=== PATIENT | male | born 1950 | race Caucasian/White ===

== ENCOUNTER 2023-10-27 07:58 | Inpatient (IN) | payer MEDICARE ==
[2023-10-27] VITALS (22 sets, daily range): BP systolic 119–183; BP diastolic 63–101
[~2023-10-27] VITALS: Ht 170 cm; Wt 73.7 kg
[~2023-10-27 07:58] MED LIST: ACHYD1T PO; ALBU8.5H2 IH; ASP325T PO; GEMF600T3 PO; GLIM4TAB PO; GLMP2T PO; HYDR-3816 PO; HYDR480S10 PO; INSU100V5 SQ; INSU100V6 SQ; LEVO500T69 PO; LISI10TA2 PO; LISI20TA PO; MONT10TA21 PO; MTF500T PO; PNT40TEC PO; PRAV40TA PO; PRAV80TA2 PO; SIMV20TA3 PO; WARF1TAB6 PO; WARF5TAB PO
--- NOTE | 2023-10-27 08:08 | ED Respiratory ---
General Chief Complaint: Respiratory Problems Stated Complaint: SOA Nursing Triage Note: PT ARRIVED PER [facility]PT [facility] OF SOA, STATES STARTED THIS AM. PT STATES HAVING DIFFICULTY BENDING OVER TO TIE HIS SHOES. PT DENIES PAIN AT THIS X. Source: patient, EMS Exam Limitations: no limitations History of Present Illness Date Seen by Provider: Oct 27, 2023 Time Seen by Provider: 07:56 Initial Comments 73 yo M with CAD presents for SOB that started last night. Worsened this AM. States worried bc feels similar to previous [place] which required stent placement. Denies fever, chills. Has chronic "smokers cough" which is unchanged. No sick contacts. No CP. Does state worsening b./l LE edema last 2-3 days. He is on an unknown diuretic. All other systems reviewed and negative except documented per HPI. Voice recognition software was used to help create this chart Allergies and Home Medications Allergies Coded Allergies: No Known Drug Allergies (Unverified , 04/21/14) Patient Home Medication List Home Medication List Reviewed: Yes Gemfibrozil (Gemfibrozil) 600 Mg Tablet, 600 MG PO BID, (Reported) Entered as Reported by: DEREK VELÁSQUEZ on 12/05/142029 Glimepiride (Glimepiride) 4 Mg Tablet, 4 MG PO DAILY, (Reported) Entered as Reported by: FAIZA ALAMO on 12/06/14947 Hydrocodone Bit/Acetaminophen (Hydrocodone-Apap 7.5/325 Tab) 1 Tab Tablet, 1 TAB PO Q6H PRN for PAIN, (Reported) Entered as Reported by: FAIZA ALAMO on 12/06/1451 Insulin Detemir (Levemir) 100 U/Ml Vial, 15 UNITS SQ DAILY, (Reported) Entered as Reported by: DEREK VELÁSQUEZ on 12/05/142030 Lisinopril (Prinivil) 20 Mg Tablet, 20 MG PO DAILY, (Reported) Entered as Reported by: FAIZA ALAMO on 12/06/14947 Metformin Hcl (Metformin 500 Mg) 500 Mg Tablet, 500 MG PO BID WITH MEALS, (Reported) Entered as Reported by: HOLLY BAIG on 04/21/142238 Pantoprazole Sod (Protonix Tab) 40 Mg Tab, 40 MG PO DAILY@0700 Prescribed by: FELY BRADFORD on 12/08/14 0935 Pravastatin Sodium (Pravachol) 40 Mg Tablet, 40 MG PO HS, (Reported) Entered as Reported by: FAIZA ALAMO on 12/06/14 0948 Review of Systems Review of Systems Constitutional: see HPI Past Ktulkbm-Rfaaao-Bwyqrs Hx Patient Social History Tobacco Use?: Yes Use of E-Cig and/or Vaping dev: No Substance use?: No Alcohol Use?: No Seasonal Allergies Seasonal Allergies: No Past Medical History Gallbladder Pneumonia, Pulmonary Embolism High Cholesterol, Hypertension Reproductive Disorders: No Gastroesophageal Reflux Diabetes, Insulin dep Skin Physical Exam Vital Signs - First Documented 10/27/23 08:00 Temp 36.4 Pulse 63 Resp 13 B/P (MAP) 162/97 (118) Pulse Ox 93 O2 Delivery Room Air Capillary Refill : Height: 5'8.00" Weight: 191lbs. 8.0oz. 86.165459lv; BMI Method:Stated General Appearance: WD/WN, mild distress HEENT: normal ENT inspection, pharynx normal Neck: non-tender, supple Respiratory: chest non-tender, no respiratory distress, no accessory muscle use, crackles Cardiovascular: regular rate, rhythm, no murmur Gastrointestinal: normal bowel sounds, non tender, soft Skin: other (2+ edema b/l LE) Progress/Results/Core Measures Suspected Sepsis SIRS Temperature: Pulse: 63 Respiratory Rate: 13 Laboratory Tests 10/27/23 08:07: White Blood Count 8.6 Blood Pressure 162 /97 Mean: 118 Laboratory Tests 10/27/23 08:07: Creatinine 1.56H, Platelet Count 229, Total Bilirubin 0.5 Results/Orders Lab Results Laboratory Tests Test 10/27/23 08:07 10/27/23 08:09 Range/Units White Blood Count 8.6 4.3-11.0 10^3/uL Red Blood Count 4.27 L 4.30-5.52 10^6/uL Hemoglobin 12.8 L 13.3-17.7 g/dL Hematocrit 40 40-54 % Mean Corpuscular Volume 93 80-99 fL Mean Corpuscular Hemoglobin 30 25-34 pg Mean Corpuscular Hemoglobin Concent 32 32-36 g/dL Red Cell Distribution Width 13.1 10.0-14.5 % Platelet Count 229 130-400 10^3/uL Mean Platelet Volume 10.7 9.0-12.2 fL Immature Granulocyte % (Auto) 0 % Neutrophils (%) (Auto) 58 42-75 % Lymphocytes (%) (Auto) 23 12-44 % Monocytes (%) (Auto) 9 0-12 % Eosinophils (%) (Auto) 9 0-10 % Basophils (%) (Auto) 1 0-10 % Neutrophils # (Auto) 4.9 1.8-7.8 10^3/uL Lymphocytes # (Auto) 2.0 1.0-4.0 10^3/uL Monocytes # (Auto) 0.8 0.0-1.0 10^3/uL Eosinophils # (Auto) 0.7 H 0.0-0.3 10^3/uL Basophils # (Auto) 0.1 0.0-0.1 10^3/uL Immature Granulocyte # (Auto) 0.0 0.0-0.1 10^3/uL Sodium Level 142 135-145 MMOL/L Potassium Level 3.6 3.6-5.0 MMOL/L Chloride Level 103 98-107 MMOL/L Carbon Dioxide Level 27 21-32 MMOL/L Anion Gap 12 5-14 MMOL/L Blood Urea Nitrogen 16 7-18 MG/DL Creatinine 1.56 H 0.60-1.30 MG/DL Estimat Glomerular Filtration Rate 46 BUN/Creatinine Ratio 10 Glucose Level 234 H 70-105 MG/DL Calcium Level 8.5 8.5-10.1 MG/DL Corrected Calcium 8.7 8.5-10.1 MG/DL Total Bilirubin 0.5 0.1-1.0 MG/DL Aspartate Amino Transf (AST/SGOT) 21 5-34 U/L Alanine Aminotransferase (ALT/SGPT) 14 0-55 U/L Alkaline Phosphatase 119 40-136 U/L Troponin I < 0.028 <0.028 NG/ML B-Type Natriuretic Peptide 1309.3 H <100.0 PG/ML Total Protein 7.2 6.4-8.2 GM/DL Albumin 3.8 3.2-4.5 GM/DL Glucometer 214 H 70-110 MG/DL My Orders Orders - CECILRAFI DO Comprehensive Metabolic Panel (10/27/23 08:04) Chest 1 View, Ap/Pa Only (10/27/23 08:04) Ekg Tracing (10/27/23 08:04) Troponin I Coke (10/27/23 08:04) Cbc And Automated Diff (10/27/23 08:04) Aspirin Chewable Tablet (Aspirin Chewabl (10/27/23 08:30) Bnp Coke (10/27/23 08:30) Ed Iv/Invasive Line Start (10/27/23 08:30) Furosemide Injection (Furosemide Injec (10/27/23 08:30) Azithromycin Injection (Azithromycin Inj (10/27/23 09:15) Ceftriaxone Iv/Im (Ceftriaxone Iv/Im) (10/27/23 09:15) Ed Admission (Communication) (10/27/23 09:39) Medications Given in ED Current Medications Medications Dose Ordered Sig/Destiney Route Start Time Stop Time Status Last Admin Dose Admin Aspirin 324 mg ONCE ONCE PO 10/27/23 08:30 10/27/23 08:31 DC 10/27/23 09:10 324 MG Azithromycin 500 mg/Sodium Chloride 250 ml @ 250 mls/hr ONCE ONCE IV 10/27/23 09:15 10/27/23 10:14 10/27/23 09:28 250 MLS/HR Ceftriaxone Sodium 1000 mg/ Sodium Chloride 50 ml @ 100 mls/hr ONCE ONCE IV 10/27/23 09:15 10/27/23 09:44 DC 10/27/23 09:26 100 MLS/HR Furosemide 40 mg ONCE ONCE IVP 10/27/23 08:30 10/27/23 08:31 DC 10/27/23 09:10 40 MG Vital Signs/I&O 10/27/23 08:00 Temp 36.4 Pulse 63 Resp 13 B/P (MAP) 162/97 (118) Pulse Ox 93 O2 Delivery Room Air Capillary Refill : Blood Pressure Mean: 118 ECG Comment Sinus rhythm with a rate of 64 bpm. Normal intervals. Left axis deviation. No ST or T wave abnormalities. Isolated PVC. No STEMI Critical Care Note Critical Care Total Time (minutes) 45 Departure Communication (Admissions) Patient is hemodynamically stable outside of some mild hypoxia treated with 2 L of oxygen via nasal cannula and improved. He states he is feeling much better. Heart rate and blood pressure are stable. He is having no chest pain but symptoms are similar to previous episodes with [place]. His chest x-ray on my independent evaluation shows likely pulmonary edema, though the radiologist does read possible infiltrates as well. Without I went ahead and give him a dose of Zithromax and Rocephin however again I believe this is likely edema. I have ordered IV Lasix, 40 mg. He does take a diuretic at home, unknown what type. His troponin is negative his EKG is nonischemic at this time. The remainder of his chemistry, CBC are unremarkable. I spoke with Dr. Rajput who accepts the patient admission to the cardiac stepdown unit and she plans to write bridging orders. I spoke with Dr. Diaz who agrees to consult. He requests me to order an echocardiogram. I have had the nurse place a verbal order for him for this. Impression Primary Impression: Dyspnea Qualified Codes: R06.00 - Dyspnea, unspecified Additional Impression: Pulmonary edema Qualified Codes: J81.0 - Acute pulmonary edema Disposition: ADMITTED INPATIENT Condition: Stable Admissions Decision to Admit Reason: Admit from ER (General) Departure-Patient Inst. Referrals: LOPEZ CORDOVA APRN (PCP/Family) Primary Care Physician RAFI JACOB DO Oct 27, 2023 08:08
[2023-10-27 08:14] LABS: BASOPHILS # (AUTO) 0.1 10^3/uL (0.0-0.1); BASOPHILS % (AUTO) 1 % (0-10); EOSINOPHILS # (AUTO) 0.7 10^3/uL (0.0-0.3); EOSINOPHILS % (AUTO) 9 % (0-10); HEMATOCRIT 40 % (40-54); HEMOGLOBIN 12.8 g/dL (13.3-17.7); LYMPHOCYTES % (AUTO) 23 % (12-44); MEAN CORPUSCULAR HEMOGLOBIN 30 pg (25-34); MEAN CORPUSCULAR HGB CONC 32 g/dL (32-36); MEAN CORPUSCULAR VOLUME 93 fL (80-99); MEAN PLATELET VOLUME 10.7 fL (9.0-12.2); MONOCYTES # (AUTO) 0.8 10^3/uL (0.0-1.0); MONOCYTES % (AUTO) 9 % (0-12); NEUTROPHILS # (AUTO) 4.9 10^3/uL (1.8-7.8); NEUTROPHILS % (AUTO) 58 % (42-75); PLATELET COUNT 229 10^3/uL (130-400); WHITE BLOOD COUNT 8.6 10^3/uL (4.3-11.0)
[2023-10-27] MEDS ORDERED: FUROSEMIDE INJECTION 40 MG/4 ML VIAL IVP ONE (08:30)
[2023-10-27] MEDS ORDERED: ASPIRIN 81 MG CHEWABLE TABLET PO ONE (08:30)
[2023-10-27 08:31] LABS: ALBUMIN 3.8 GM/DL (3.2-4.5); CHLORIDE 103 MMOL/L (98-107); POTASSIUM 3.6 MMOL/L (3.6-5.0); SODIUM 142 MMOL/L (135-145)
[2023-10-27 08:32] LABS: CALCIUM 8.5 MG/DL (8.5-10.1)
[2023-10-27 08:33] LABS: GLUCOSE 234 MG/DL (70-105)
[2023-10-27 08:34] LABS: TOTAL PROTEIN 7.2 GM/DL (6.4-8.2)
[2023-10-27 08:35] LABS: CARBON DIOXIDE 27 MMOL/L (21-32)
[2023-10-27 08:36] LABS: BILIRUBIN,TOTAL 0.5 MG/DL (0.1-1.0)
[2023-10-27 08:37] LABS: ALKALINE PHOSPHATASE 119 U/L (40-136); CREATININE SERUM 1.56 MG/DL (0.60-1.30); GFR ESTIMATED 46
[2023-10-27 08:38] LABS: BUN/CREATININE RATIO 10
[2023-10-27 08:40] LABS: ALANINE AMINOTRANSFERASE 14 U/L (0-55)
--- NOTE | 2023-10-27 08:41 | Diagnostic Imaging Report ---
CLINICAL INDICATION: Patient with shortness of air. EXAM: Portable chest x-ray upright view. COMPARISON: None. FINDINGS: There are mild amorphous airspace opacities involving the right midlung field and both lung bases. There is fluid within the right minor fissure region. There is a small right pleural effusion. There is no pneumothorax. Cardiac silhouette is upper limits of normal for portable projection. Pulmonary vasculature is within normal limits. There are degenerative spurs involving the thoracic spine. IMPRESSION: 1: There is mild airspace opacities involving the right midlung field and bibasilar regions concerning for infiltrates. 2: There is a small right pleural effusion. Dictated by: Dictated on workstation # [id number]
[2023-10-27] MEDS ORDERED: AZITHROMYCIN INJECTION 500 MG in NS (IVPB) 250 ML 250 ML IV ONE ×2 (09:15→12:00)
[2023-10-27] MEDS ORDERED: cefTRIAXone IV/IM 1,000 MG in NS (IVPB) 50 ML 50 ML IV ONE (09:15)
--- NOTE | 2023-10-27 09:47 | History & Physical-Hospitalist ---
History of Present Illness Date Seen 10/27/23 Attending Physician Medina Andrade Aprn PCP Admitting Physician: Attending Physician: Referring Physician Date of Admission Home Medications & Allergies Home Medications Reviewed patient Home Medication Reconciliation performed by pharmacy medication reconciliations auto repair technician and/or nursing. Patients Allergies have been reviewed. Allergies Allergies Coded Allergies No Known Drug Allergies (Unverified04/21/14) Past Qhzwlbw-Lfpfux-Cfemsh Hx Patient Social History Tobacco Use?: Yes Tobacco type used: Cigarettes Smoking Status: Current Everyday Smoker Use of E-Cig and/or Vaping dev: No Substance use?: No Alcohol Use?: No Pt feels they are or have been: No Immunizations Up To Date Date of Influenza Vaccine: Oct 11, 2014 First/Initial COVID19 Vaccinat: YES Second COVID19 Vaccination Carlos: YES Date of Pneumonia Vaccine: Oct 11, 2014 Seasonal Allergies Seasonal Allergies: No Current Status Advance Directives: No Communicates: Verbally Primary Language: Indian Preferred Spoken Language: Indian Is interpretation needed?: No Implanted or Applied Medical D: None Past Medical History Surgeries: Gallbladder Pneumonia, Pulmonary Embolism High Cholesterol, Hypertension Gastroesophageal Reflux Diabetes, Insulin dep Skin Physical Exam Physical Exam Vital Signs Vital Signs - First Documented 10/27/23 10/27/23 10/27/23 08:00 11:15 13:00 Temp 36.4 Pulse 63 Resp 13 B/P (MAP) 162/97 (118) Pulse Ox 93 O2 Delivery Room Air O2 Flow Rate 2.00 FiO2 24 Capillary Refill : Height, Weight, BMI Height: 5'8.00" Weight: 191lbs. 8.0oz. 86.526609pd; BMI Method:Stated Results Results/Procedures Labs Laboratory Tests 10/27/23 08:07 Patient resulted labs reviewed. SAMINA SMITH DO Oct 27, 2023 09:47
--- NOTE | 2023-10-27 10:02 | Consultation-Cardiology ---
HPI-Cardiology Cardiology Consultation Date of Consultation 10/27/23 Date of Admission Time Seen by Provider: 09:56 Indication: Dyspnea, elevated BNP HPI Patient is a 73 y/o male with hx of CAD with stenting in the past, PVD, HTN, HLP, DM and tobaccoism. Presented to the ER with complaints of increased dyspnea and peripheral edema for the past several days. Denies any chest pain. Patient reports he was concerned as he did not have any chest pain last time he had an DE. Denies any dizziness or syncope. Home Medications & Allergies Allergies: Coded Allergies: No Known Drug Allergies (Unverified , 04/21/14) Home Medication List Reviewed: Yes SQT-Udjduq-Xrsaiq Hx Patient Social History Smoking Status: Current Everyday Smoker Alcohol Use?: No Immunizations Up To Date Date of Pneumonia Vaccine: Oct 11, 2014 Date of Influenza Vaccine: Oct 11, 2014 Past Medical History CAD, HTN, HLP, DM, PVD, tobaccoism, Review of Systems-General Review of Systems Constitutional: see HPI, malaise EENTM: see HPI, no symptoms reported; No blurred vision, No double vision, No eye pain Respiratory: see HPI, dyspnea on exertion, orthopnea, short of breath Cardiovascular: see HPI; No chest pain; edema, Hx of Intervention; No syncope Gastrointestinal: see HPI; No abdominal pain Genitourinary: see HPI; No dysuria, No hematuria Reviewed Test Results Reviewed Test Results Lab Laboratory Tests 10/27/23 08:07: White Blood Count 8.6, Red Blood Count 4.27L, Hemoglobin 12.8L, Hematocrit 40, Mean Corpuscular Volume 93, Mean Corpuscular Hemoglobin 30, Mean Corpuscular Hemoglobin Concent 32, Red Cell Distribution Width 13.1, Platelet Count 229, Mean Platelet Volume 10.7, Immature Granulocyte % (Auto) 0, Neutrophils (%) (Auto) 58, Lymphocytes (%) (Auto) 23, Monocytes (%) (Auto) 9, Eosinophils (%) (Auto) 9, Basophils (%) (Auto) 1, Neutrophils # (Auto) 4.9, Lymphocytes # (Auto) 2.0, Monocytes # (Auto) 0.8, Eosinophils # (Auto) 0.7H, Basophils # (Auto) 0.1, Immature Granulocyte # (Auto) 0.0, Sodium Level 142, Potassium Level 3.6, Chloride Level 103, Carbon Dioxide Level 27, Anion Gap 12, Blood Urea Nitrogen 16, Creatinine 1.56H, Estimat Glomerular Filtration Rate 46, BUN/Creatinine Ratio 10, Glucose Level 234H, Calcium Level 8.5, Corrected Calcium 8.7, Total Bilirubin 0.5, Aspartate Amino Transf (AST/SGOT) 21, Alanine Aminotransferase (ALT/SGPT) 14, Alkaline Phosphatase 119, Troponin I < 0.028, B-Type Natriuretic Peptide 1309.3H, Total Protein 7.2, Albumin 3.8 10/27/23 08:09: Glucometer 214H Physical Exam Physical Exam Vital Signs Vital Signs - First Documented 10/27/23 10/27/23 08:00 11:15 Temp 36.4 Pulse 63 Resp 13 B/P (MAP) 162/97 (118) Pulse Ox 93 O2 Delivery Room Air O2 Flow Rate 2.00 Capillary Refill : Height, Weight, BMI Height: 5'8.00" Weight: 191lbs. 8.0oz. 86.230696ss; BMI Method:Stated General Appearance: Anxious, Mild Distress HEENT: PERRL/EOMI, Other (lesion to right side face) Respiratory: Rhonci, Wheezing Cardiovascular: Regular Rate, Rhythm Gastrointestinal: Non Tender, Soft Extremity: Non Tender, No Calf Tenderness, Pedal Edema Neurologic/Psychiatric: Alert, Oriented x3, sign carpenter II-XII Norm as Tested A/P-Cardiology Admission Diagnosis Dyspnea Elevated BNP CAD HTN Assessment/Plan Dyspnea, likely multifactorial, elevated BNP, CXR showing right sided infiltrate. Started on antibiotics, received IV Lasix. 2D echo done on October 27, 2023 with ejection fraction 30 to 35% with anterior wall akinesia, severe pulmonary hypertension Continue with diuretics in addition recommend adding steroids, empiric antibiotics. Congestive heart failure, acute left ventricular systolic dysfunction, probably ischemic with anterior wall akinesia, old anterior myocardial infarction. Will maximize medical therapy and evaluate tolerance and response CAD, reports history of intervention approx 2-3 years ago. Primary chart picker is Dr. Austin, but reports no recent visit or work up. Monitor cardiac enzymes, monitor on telemetry HTN, restart home blood pressure medication and continue to monitor HLP, I will evaluate lipid profile. PVD,reports history of stenting to the LLE DM, management per medical services COPD, acute exacerbation, recommend starting steroids Tobaccoism, educated on smoking cessation Thank you for allowing us to participate in the management of Mr. Bravo. This is Siena Mart PA-C, as a scribe for Dr. Diaz. Patient was seen and evaluated with Siena, I interviewed and examined the patient and discussed the management plan with Siena, I agree with the curr ent scribed note I made few modification using Italic font. SIENA MART PA-C Oct 27, 2023 10:02 JACEY DIAZ MD Oct 27, 2023 11:57
[2023-10-27] MEDS ORDERED: methylPREDNISolone INJ 125 MG VIAL IVP ONE (11:15)
[2023-10-27] MEDS ORDERED: RT-Ipratropium/Albuterol NEB 3 ML VIAL INH ONE (11:15)
[2023-10-27] MEDS ORDERED: ACETAMINOPHEN 325 MG TABLET PO PRN (12:00)
[2023-10-27] MEDS ORDERED: diphenhydrAMINE INJ 50 MG/ML VIAL IVP PRN (12:00)
[2023-10-27] MEDS ORDERED: LACTULOSE SYRUP 10GM/15ML 30ML UDC PO PRN (12:00)
[2023-10-27] MEDS ORDERED: MILK OF MAGNESIA 400 MG/5 ML 30 ML UDC PO PRN (12:00)
[2023-10-27] MEDS ORDERED: PATIENT MAY USE OWN MEDS, ALL PO SCH (12:00)
[2023-10-27] MEDS ORDERED: MELATONIN 3 MG TABLET PO PRN (12:00)
[2023-10-27] MEDS ORDERED: ONDANSETRON INJECTION 4 MG/2 ML (SDV) IV PRN (12:00)
[2023-10-27] MEDS ORDERED: NITROGLYCERIN 0.4 MG SL TABLETS BTL 25'S SL PRN (12:00)
[2023-10-27] MEDS ORDERED: ANTACID SUSPENSION 30 ML UDC PO PRN (12:00)
[2023-10-27] MEDS ORDERED: BISACODYL 10 MG SUPPOSITORY PR PRN (12:00)
[2023-10-27] MEDS ORDERED: CALCIUM CARBONATE 500 MG CHEW TABLET PO PRN (12:00)
[2023-10-27] MEDS ORDERED: HYDROmorphone INJECTION 2 MG/ML VIAL IV PRN (12:00)
[2023-10-27] MEDS ORDERED: oxyCODONE IMMEDIATE RELEASE 5 MG TABLET PO PRN (12:00)
[2023-10-27] MEDS ORDERED: diphenhydrAMINE 25 MG TABLET PO PRN (12:00)
[2023-10-27] MEDS ORDERED: ONDANSETRON 4 MG ORAL DISSOLVE TABLET PO PRN (12:00)
[2023-10-27] MEDS ORDERED: RT-Ipratropium/Albuterol NEB 3 ML VIAL ONE (13:12)
[2023-10-27] MEDS ORDERED: RT-ALBUTEROL SULF 2.5 MG/3 ML PRE-MIX VIAL INH PRN (13:15)
[2023-10-27] MEDS: ENOXAPARIN 40 MG/0.4 ML SYRINGE SC SCH (13:44)
[2023-10-27] MEDS: dexAMETHasone INJ 4 MG/ML SDV IV SCH ×2 (13:44→20:10)
--- NOTE | 2023-10-27 13:51 | History & Physical-Hospitalist ---
LEIDA MILLS 10/27/23 1351: History of Present Illness HPI/Chief Complaint Pt presented to the ED this morning due to SOB that started today. It started worsening and due to his history of having an OH, he decided to come in. Pt reported to me that he is SOB and that it is "hard to take a deep breath". He denies having any abdominal pain, confusion, WELCH, numbness or tingling. Pt's daughter was in the room. Source: patient Exam Limitations: no limitations Date Seen 10/27/23 Time Seen by a Provider: 10:15 Attending Physician PCP Admitting Physician: Shirley Smith DO Attending Physician: Shirley Smith DO Referring Physician Date of Admission Oct 27, 2023 at 11:28 Home Medications & Allergies Home Medications Reviewed patient Home Medication Reconciliation performed by pharmacy medication reconciliations hvac residential service technician and/or nursing. Patients Allergies have been reviewed. Allergies Allergies Coded Allergies No Known Drug Allergies (Unverified04/21/14) Past Agyfodw-Mcbryl-Qlsxmv Hx Patient Social History Tobacco Use?: Yes Tobacco type used: Cigarettes Smoking Status: Current Everyday Smoker Use of E-Cig and/or Vaping dev: No Substance use?: No Alcohol Use?: No Pt feels they are or have been: No Immunizations Up To Date Date of Influenza Vaccine: Oct 11, 2014 First/Initial COVID19 Vaccinat: YES Second COVID19 Vaccination Carlos: YES Date of Pneumonia Vaccine: Oct 11, 2014 Seasonal Allergies Seasonal Allergies: No Current Status Advance Directives: No Communicates: Verbally Primary Language: Macedonian Preferred Spoken Language: Macedonian Is interpretation needed?: No Implanted or Applied Medical D: None Past Medical History Surgeries: Gallbladder Pneumonia, Pulmonary Embolism High Cholesterol, Hypertension Gastroesophageal Reflux Diabetes, Insulin dep Skin Review of Systems Constitutional: No dizziness, No fever, No weakness EENTM: No ear pain, No blurred vision, No double vision, No eye pain Respiratory: cough (chronic), short of breath Cardiovascular: No chest pain, No palpitations Gastrointestinal: No abdominal pain Musculoskeletal: neck pain (rt sided. blames the positioning of the ER bed.) Psychiatric/Neurological: Denies Headache, Denies Numbness, Denies Tingling, Denies Weakness Physical Exam Physical Exam Vital Signs Vital Signs - First Documented 10/27/23 10/27/23 10/27/23 08:00 11:15 13:00 Temp 36.4 Pulse 63 Resp 13 B/P (MAP) 162/97 (118) Pulse Ox 93 O2 Delivery Room Air O2 Flow Rate 2.00 FiO2 24 Capillary Refill : Height, Weight, BMI Height: 5'8.00" Weight: 191lbs. 8.0oz. 86.714639ow; 24.22 BMI Method:Stated General Appearance: Mild Distress HEENT: PERRL/EOMI; No Photophobia, No Scleral Icterus (L), No Scleral Icterus (R) Neck: Normal Inspection, Tender Lateral (rt) Respiratory: Chest Non Tender, Accessory Muscle Use, Rhonci, Wheezing Cardiovascular: Regular Rate, Rhythm, No Murmur Gastrointestinal: Normal Bowel Sounds, Non Tender, Soft; No Distended, No Guarding, No Rebound Extremity: Normal Capillary Refill, No Calf Tenderness Neurologic/Psychiatric: Alert, Oriented x3, No Motor/Sensory Deficits, Normal Mood/Affect, violin mechanic II-XII Norm as Tested Results Results/Procedures Labs Laboratory Tests 10/27/23 08:07 Patient resulted labs reviewed. Assessment/Plan Assessment and Plan Assessment: Dyspnea CHF CAD HTN Plan: Dyspnea -started on antibiotics and steroids -continue lasix CHF -will monitor status due to medication additions CAD -monitor cardiac enzymes -Dr. Diaz, cardiology, was consulted HTN -continue home medications -monitor BP SHIRLEY SMITH DO 10/28/23 0431: History of Present Illness HPI/Chief Complaint Chief complaint: Shortness of breath HPI: This is a 77-year-old male clinic patient is seen today who has a past medical history of COPD and smoking who presented to the ER with increased shortness of breath found to have hypoxia. Bilateral infiltrates on chest x-ray prompted addition of IV antibiotics. Due to his wheezing we will add IV steroids. Lasix ordered cardiology consulted and echocardiogram ordered. Source: patient Exam Limitations: clinical condition (Shortness of breath) Past Xsxecbe-Uquymz-Dbzljs Hx Patient Social History Marrital Status: Employed/Student: retired Tobacco Use?: Yes Smoking Status: Current Everyday Smoker Past Medical History COPD High Cholesterol, Hypertension Diabetes, Insulin dep Review of Systems Constitutional: see HPI Respiratory: dyspnea on exertion, short of breath, wheezing Physical Exam Physical Exam General Appearance: No Apparent Distress, Chronically ill Eyes: Right Eye Normal Inspection, Right Eye PERRL HEENT: PERRL/EOMI, Normal ENT Inspection, Pharynx Normal, Moist Mucous Membranes Neck: Full Range of Motion, Normal Inspection, Non Tender Respiratory: Chest Non Tender, No Respiratory Distress, Accessory Muscle Use, Decreased Breath Sounds, Wheezing Cardiovascular: Regular Rate, Rhythm, No Edema, No Gallop, No JVD, No Murmur, Normal Peripheral Pulses Gastrointestinal: Normal Bowel Sounds, No Organomegaly, No Pulsatile Mass, Non Tender, Soft Back: Normal Inspection, No CVA Tenderness, No Vertebral Tenderness Extremity: Normal Capillary Refill, Normal Inspection, Normal Range of Motion, Non Tender, No Calf Tenderness, No Pedal Edema Neurologic/Psychiatric: Alert, Oriented x3, No Motor/Sensory Deficits, Normal Mood/Affect Skin: Normal Color, Warm/Dry Lymphatic: No Adenopathy Assessment/Plan Admission Diagnosis Assessment: Acute on chronic respiratory failure Exacerbation COPD with wheezing placed on Decadron Acute exacerbation of CHF given Lasix and cardiology consulted and echocardiogram Smoker Hypertension Diabetes insulin-dependent CAD on Plavix Plan: IV steroids IV Lasix Endo Cardiology consult IV antibiotics Admission Status: Observation Supervisory-Addendum Brief Verification & Attestation Participated in pt care: history, MDM, physical Personally performed: exam, history, MDM, supervision of care Care discussed with: Medical Student Procedures: n/a Results interpretation: Verified all documentation Verification and Attestation of Medical Student E/M Service A medical student performed and documented this service in my presence. I reviewed and verified all information documented by the medical student and made modifications to such information, when appropriate. I personally performed the physical exam and medical decision making. Shirley Smith Oct 28, 2023,04:30 ELIDA MILLS Oct 27, 2023 13:51 SHIRLEY SMITH DO Oct 28, 2023 04:31
[2023-10-27] MEDS ORDERED: CLOP75TA28 PO (14:16)
[2023-10-27] MEDS ORDERED: CARV25TA PO (14:16)
[2023-10-27] MEDS ORDERED: INSU100I14 SC (14:16)
[2023-10-27] MEDS ORDERED: ASPI-1238 PO (14:16)
[2023-10-27] MEDS ORDERED: FURO40TA4 PO (14:16)
[2023-10-27] MEDS ORDERED: ATOR40TA70 PO (14:16)
[2023-10-27] MEDS ORDERED: INSU100I88 SC (14:16)
[2023-10-27] MEDS ORDERED: LISI5TAB20 PO (14:16)
[2023-10-27] MEDS: RT-Ipratropium/Albuterol NEB 3 ML VIAL INH SCH ×3 (14:50→22:21)
[2023-10-27] MEDS: FUROSEMIDE INJECTION 40 MG/4 ML VIAL IVP SCH (17:20)
[2023-10-27] MEDS: inSUlin ASPART 1 UNIT/0.01 ML (PER UNIT) SC SCH ×2 (17:21→20:10)
[2023-10-27] MEDS: carvediloL 3.125 MG TABLET PO SCH (20:10)
[2023-10-27] MEDS: SENNOSIDES 8.6 MG TABLET PO SCH (22:27)
[2023-10-27] MEDS: DOCUSATE SODIUM 100 MG CAPSULE PO SCH (22:27)
[2023-10-28] VITALS (12 sets, daily range): BP systolic 107–148; BP diastolic 53–78
[2023-10-28] MEDS: RT-Ipratropium/Albuterol NEB 3 ML VIAL INH SCH ×6 (02:16→21:49)
[2023-10-28] MEDS ORDERED: inSUlin (REGULAR) HUMAN 1 UNIT/0.01 ML (CHARGE PER UNIT) SC PRN (04:30)
[2023-10-28 04:47] LABS: BASOPHILS % (AUTO) 0 % (0-10); EOSINOPHILS % (AUTO) 0 % (0-10); HEMATOCRIT 34 % (40-54); HEMOGLOBIN 11.1 g/dL (13.3-17.7); LYMPHOCYTES # (AUTO) 0.8 10^3/uL (1.0-4.0); LYMPHOCYTES % (AUTO) 8 % (12-44); MEAN CORPUSCULAR HEMOGLOBIN 29 pg (25-34); MEAN CORPUSCULAR HGB CONC 33 g/dL (32-36); MEAN CORPUSCULAR VOLUME 90 fL (80-99); MEAN PLATELET VOLUME 11.3 fL (9.0-12.2); MONOCYTES # (AUTO) 0.1 10^3/uL (0.0-1.0); MONOCYTES % (AUTO) 1 % (0-12); NEUTROPHILS # (AUTO) 8.9 10^3/uL (1.8-7.8); NEUTROPHILS % (AUTO) 90 % (42-75); PLATELET COUNT 218 10^3/uL (130-400); WHITE BLOOD COUNT 9.9 10^3/uL (4.3-11.0)
[2023-10-28 05:09] LABS: ALANINE AMINOTRANSFERASE 12 U/L (0-55); ALBUMIN 3.3 GM/DL (3.2-4.5); ALKALINE PHOSPHATASE 110 U/L (40-136); BILIRUBIN,TOTAL 0.6 MG/DL (0.1-1.0); BUN/CREATININE RATIO 16; CALCIUM 8.2 MG/DL (8.5-10.1); CARBON DIOXIDE 23 MMOL/L (21-32); CHLORIDE 104 MMOL/L (98-107); CHOLESTEROL 139 MG/DL (< 200); CREATININE SERUM 1.44 MG/DL (0.60-1.30); GFR ESTIMATED 51; GLUCOSE 286 MG/DL (70-105); HDL CHOLESTEROL 39 MG/DL (40-60); POTASSIUM 3.7 MMOL/L (3.6-5.0); SODIUM 139 MMOL/L (135-145); TOTAL PROTEIN 5.9 GM/DL (6.4-8.2); TRIGLYCERIDES 62 MG/DL (<150); VLDL CHOLESTEROL 12 MG/DL (5-40)
[2023-10-28 05:34] LABS: BAND NEUTROPHILS 3 %; LYMPHOCYTES % (MANUAL) 10 %; MONOCYTES % (MANUAL) 3 %; NEUTROPHILS % (MANUAL) 84 %; RBC MORPH NORMAL
[2023-10-28] MEDS: inSUlin ASPART 1 UNIT/0.01 ML (PER UNIT) SC SCH ×7 (06:14→20:14)
[2023-10-28] MEDS: FUROSEMIDE INJECTION 40 MG/4 ML VIAL IVP SCH ×2 (06:15→17:13)
--- NOTE | 2023-10-28 08:11 | Cardiology Progress Note ---
Subjective Date Seen by Provider: Oct 28, 2023 Time Seen by Provider: 08:09 Subjective/Events-last exam Patient was seen at bedside, sitting comfortably, feeling better, reporting improvement in his symptoms and breathing Objective-Cardiology Exam Last Set of Vital Signs Vital Signs 10/27/23 10/28/23 10/28/23 10/28/23 13:00 06:00 07:03 07:56 Temp 36.3 Pulse 57 Resp 16 B/P (MAP) 136/64 (88) Pulse Ox 98 O2 Delivery Nasal Cannula O2 Flow Rate 2.00 FiO2 24 I&O Intake and Output 10/28/23 00:00 Intake Total 700 ml Output Total 1300 ml Balance -600 ml Intake Oral 400 ml IV Total 300 ml Output Urine Total 1300 ml Daily Weight Change No General: Alert, Oriented X3, Cooperative HEENT: Atraumatic, PERRLA Neck: Supple, No JVD, No Thyromegaly Lungs: Clear to Auscultation, Normal Air Movement Heart: Regular Rate, Normal S1, Normal S2, No Murmurs Abdomen: Normal Bowel Sounds, Soft, No Tenderness, No Hepatosplenomegaly, No Masses Extremities: No Clubbing, No Cyanosis, Normal Pulses, No Tenderness/Swelling, Other (Mild pedal edema) Skin: No Rashes, No Breakdown, No Significant Lesion Neuro: Normal Speech, Normal Tone, Sensation Intact Psych/Mental Status: Mental Status NL, Mood NL Results Lab Laboratory Tests 10/28/23 03:40 A/P-Cardiology Admission Diagnosis Dyspnea Elevated BNP CAD HTN Assessment/Plan Dyspnea, likely multifactorial, elevated BNP, CXR showing right sided infiltrate. Started on antibiotics, received IV Lasix. 2D echo done on October 27, 2023 with ejection fraction 30 to 35% with anterior wall akinesia, severe pulmonary hypertension Continue with diuretics in addition recommend adding steroids, empiric antibiotics. Congestive heart failure, acute on chronic left ventricular systolic dysfunction , probably ischemic with anterior wall akinesia, old anterior myocardial infarction. Continue to maximize medical therapy, continue on diuretics Monitor tolerance and response CAD, reports history of intervention approx 2-3 years ago. Primary wrapper layer is Dr. Austin, but reports no recent visit or work up. Monitor cardiac enzymes, monitor on telemetry Hypertension, controlled Home medication restarted. Continue to monitor Hyperlipidemia, maintained on atorvastatin 40 mg daily Continue to monitor lipids PVD,reports history of stenting to the LLE DM, management per medical services COPD, acute exacerbation, recommend starting steroids Tobaccoism, educated on smoking cessation JACEY LARSEN MD Oct 28, 2023 08:11
[2023-10-28] MEDS: SENNOSIDES 8.6 MG TABLET PO SCH ×2 (09:00→20:10)
[2023-10-28] MEDS ORDERED: ASPIRIN enteric coated 81MG TABLET PO SCH ×3 (09:00→21:00)
[2023-10-28] MEDS ORDERED: FUROSEMIDE INJECTION 40 MG/4 ML VIAL IV SCH (09:00)
[2023-10-28] MEDS: DOCUSATE SODIUM 100 MG CAPSULE PO SCH ×2 (09:00→20:10)
[2023-10-28] MEDS: cefTRIAXone IV/IM 1,000 MG in NS (IVPB) 50 ML 50 ML IV SCH (09:15)
[2023-10-28] MEDS: CLOPIDOGREL 75 MG TABLET PO SCH (09:15)
[2023-10-28] MEDS: dexAMETHasone INJ 4 MG/ML SDV IV SCH ×2 (09:15→20:13)
[2023-10-28] MEDS: inSUlin DETERMIR 1 UNIT/0.01 ML (CHARGE PER UNIT) SQ SCH (09:15)
[2023-10-28] MEDS: AZITHROMYCIN 250 MG TABLET PO SCH (09:16)
[2023-10-28] MEDS: MONTELUKAST 10 MG TABLET PO SCH (09:16)
[2023-10-28] MEDS: carvediloL 3.125 MG TABLET PO SCH (09:16)
--- NOTE | 2023-10-28 09:21 | Diagnostic Imaging Report ---
INDICATION: Dyspnea COMPARISON: 10/27/2023 TECHNIQUE: Two radiographs of the chest dated 12/28/2022. FINDINGS: The cardiac silhouette is within normal limits in size. No significant pulmonary vascular congestion. Small right and trace left pleural effusions are again identified, slightly worsened on the right. This is associated with slightly improved though minimal persisting right greater than left bibasilar pulmonary opacities. No pneumothorax. No acute osseous abnormality. Surgical clips within the upper abdomen. IMPRESSION: Slightly worsened small right and trace left pleural effusion with slightly improved bibasilar atelectasis and/or pneumonitis. Dictated by: Dictated on workstation # [id number]
--- NOTE | 2023-10-28 10:03 | Progress Note - Hospitalist ---
ELIDA MILLS 10/28/23 1002: Subjective HPI/CC On Admission Date Seen by Provider: Oct 28, 2023 Time Seen by Provider: 09:00 Chief complaint: Shortness of breath HPI: This is a 77-year-old male clinic patient is seen today who has a past medical history of COPD and smoking who presented to the ER with increased shortness of breath found to have hypoxia. Bilateral infiltrates on chest x-ray prompted addition of IV antibiotics. Due to his wheezing we will add IV steroids. Lasix ordered cardiology consulted and echocardiogram ordered. Subjective/Events-last exam Pt states that he feels like he can "get air" today. Yesterday he was reporting that it was hard to take deep breaths but that has resolved. He states that he was put on Bipap various times throughout the night and kept taking it off when he was uncomfortable. Review of Systems General: No Chills, No Night Sweats HEENT: No Head Aches, No Visual Changes, No Eye Pain, No Ear Pain Pulmonary: No Cough Cardiovascular: No: Chest Pain, Palpitations Gastrointestinal: No: Nausea, Vomiting, Abdominal Pain Neurological: No: Weakness, Numbness, Incoordination, Change in speech, Confusion Objective Exam Vital Signs Vital Signs Date Time Temp Pulse Resp B/P (MAP) Pulse Ox O2 Delivery O2 Flow Rate FiO2 10/28/23 12:07 36.5 Nasal Cannula 2.00 10/28/23 10:14 98 10/28/23 08:00 73 16 131/55 (80) 10/27/23 13:00 24 Capillary Refill : General Appearance: No Apparent Distress HEENT: PERRL/EOMI; No Photophobia, No Scleral Icterus (L), No Scleral Icterus (R) Neck: Normal Inspection, Non Tender Respiratory: Chest Non Tender, No Accessory Muscle Use, No Respiratory Distress, Rhonci, Wheezing (improvement from yesterday) Cardiovascular: Regular Rate, Rhythm, No JVD, No Murmur, Normal Peripheral Pulses Gastrointestinal: Normal Bowel Sounds, Non Tender, Distended (RUQ + LUQ slightly); No Guarding, No Rebound Back: No CVA Tenderness Extremity: Normal Capillary Refill Neurologic/Psychiatric: Alert, Oriented x3, No Motor/Sensory Deficits, Normal Mood/Affect, 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 Assessment/Plan Assessment and Plan Assess & Plan/Chief Complaint Assessment: Dyspnea CHF Pulmonary HTN CAD HTN Plan: Dyspnea -Continue antibiotics, lasix, and steroids -pt will be moved to 4th floor. therapy will be consulted to get pt moving around -O2 will be used when walking CHF -telemetry will be used when pt is moved to 4th floor Pulmonary HTN -secondary to CHF shown on ECHO results CAD -monitor cardiac enzymes -continue following cardiology plans HTN -continue home medications -monitor BP SHIRLEY SMITH DO 10/29/23 0431: Subjective Subjective/Events-last exam Patient doing much better Breathing better Will moved down to fourth floor Objective Exam General Appearance: No Apparent Distress Respiratory: Rhonci, Wheezing (improvement from yesterday) Assessment/Plan Assessment and Plan Assess & Plan/Chief Complaint Moved down to fourth floor Supervisory-Addendum Brief Verification & Attestation Participated in pt care: history, MDM, physical Personally performed: exam, history, MDM, supervision of care Care discussed with: Medical Student Procedures: n/a Results interpretation: Verified all documentation Verification and Attestation of Medical Student E/M Service A medical student performed and documented this service in my presence. I reviewed and verified all information documented by the medical student and made modifications to such information, when appropriate. I personally performed the physical exam and medical decision making. Shirley Smith, Oct 29, 2023,04:30 ELIDA MILLS Oct 28, 2023 10:02 SHIRLEY SMITH DO Oct 29, 2023 04:31
[2023-10-28] MEDS: FLUTICASONE/VILANTEROL 200/25 MCG (14 DOSES) IH SCH (10:12)
[2023-10-28] MEDS: ENOXAPARIN 40 MG/0.4 ML SYRINGE SC SCH (11:51)
--- NOTE | 2023-10-28 14:32 | Physical Therapy Evaluation ---
PT Evaluation-General Medical Diagnosis Admission Date Oct 28, 2023 at 11:10 Medical Diagnosis: Dyspnea, CHF, CAD, HTN Onset Date: Oct 27, 2023 Therapy Diagnosis Therapy Diagnosis: Gait deficit Height/Weight Height (Feet): 5 Height (Inches): 8.00 Weight (Pounds): 191 Weight (Ounces): 8.0 Precautions Precautions/Isolations: Fall Prevention, Standard Precautions Weight Bear Status Right Lower Extremity: Right Full Weight Bearing Left Lower Extremity: Left Full Weight Bearing Referral Physician: Dr. Rajput Reason for Referral: Evaluation/Treatment Medical History Reviewed History: Yes Social History Home: Single Level Current Living Status: Alone Entry Into Home: Stairs Without Railing PT Steps Into Home: 2 Prior Prior Level of Function SCALE: Activities may be completed with or without assistive devices. 8-Edmjoshcrr-tneczub completes the activity by him/herself with no assistance from a helper. 5-Set-up or Clean-up Assistance-helper sets up or cleans up; patient completes activity. [place] assists only prior to or following the activity. 4-Supervision or Touching Assistance-helper provides verbal cues and/or touching/steadying and/or contact guard assistance as patient completes activity. Assistance may be provided throughout the activity or intermittently. 3-Partial/Moderate Assistance-helper does LESS THAN HALF the effort. [place] lifts, holds or supports trunk or limbs, but provides less than half the effort. 2-Substantial/Maximal Assistance-helper does MORE THAN HALF the effort. [place] lifts or holds trunk or limbs and provides more than half the effort. 1-Ykbunrzan-redgbf does ALL the effort. Patient does none of the effort to complete the activity. Or, the assistance of 2 or more helpers is required for the patient to complete the activity. If activity was not attempted, code reason: 7-Patient Refused. 9-Not Applicable-not attempted and the patient did not perform the activity before the current illness, exacerbation or injury. 10-Not Attempted due to Environmental Limitations-(lack of equipment, weather restraints, etc.). 88-Not Attempted due to Medical Conditions or Safety Concerns. Bed Mobility: 6 Transfers (B,C,W/C): 6 Gait: 6 Stairs: 6 Indoor Mobility (Ambulation): Independent Stairs: Independent Prior Devices Use: None PT Evaluation-Current Subjective Patient lying supine in bed upon PT arrival, agreeable to treatment. Patient rates pain at 0/10. Objective Patient Orientation: Person, Place, Time, Situation Attachments: Oxygen ROM/Strength ROM Lower Extremities WFLs BLEs all planes Strength Lower Extremities 4/5 BLEs all planes Sensory Vision: Wears Glasses Hearing: Functional Sensation Right Lower Extremit: Intact Sensation Left Lower Extremity: Intact Transfers Roll Left to Right (QC): 6 Sit to Lying (QC): 6 Lying to Sitting/Side of Bed(Q: 6 Sit to Stand (QC): 6 Chair/Jkc-xl-Lqgvu Xfer(QC): 6 Gait Does the Patient Walk?: Yes Mode of Locomotion: Walk Anticipated Mode of Locomotion: Walk Walk 10 feet (QC): 6 Walk 50 ft with 2 Turns(QC): 6 Walk 150 ft (QC): 6 Distance: 300' Gait Assistive Device: None Balance Sitting Static: Normal Sitting Dynamic: Normal Standing Static: Good Standing Dynamic: Good Assessment/Needs Patient at [facility]. No further need for PT. Rehab Potential: Good PT Plan Treatment/Plan Treatment Plan: Discontinue PT Treatment Plan: Other Treatment Duration: Oct 29, 2023 Frequency: Time Time In: 1359 Time Out: 1414 DATE: Oct 28, 2023 Total Billed Treatment Time: 15 Total Billed Treatment Visit, BETHANY CULVER PT Oct 28, 2023 14:32
[2023-10-28] MEDS: carvediloL 12.5 MG TABLET PO SCH (20:13)
[2023-10-29] MEDS: RT-Ipratropium/Albuterol NEB 3 ML VIAL INH SCH ×3 (02:43→10:08)
[2023-10-29 03:39] VITALS: BP 164/79
[2023-10-29 04:48] LABS: BASOPHILS % (AUTO) 0 % (0-10); EOSINOPHILS % (AUTO) 0 % (0-10); HEMATOCRIT 34 % (40-54); HEMOGLOBIN 11.1 g/dL (13.3-17.7); LYMPHOCYTES # (AUTO) 0.9 10^3/uL (1.0-4.0); LYMPHOCYTES % (AUTO) 6 % (12-44); MEAN CORPUSCULAR HEMOGLOBIN 30 pg (25-34); MEAN CORPUSCULAR HGB CONC 33 g/dL (32-36); MEAN CORPUSCULAR VOLUME 92 fL (80-99); MEAN PLATELET VOLUME 11.3 fL (9.0-12.2); MONOCYTES # (AUTO) 0.6 10^3/uL (0.0-1.0); MONOCYTES % (AUTO) 4 % (0-12); NEUTROPHILS # (AUTO) 12.7 10^3/uL (1.8-7.8); NEUTROPHILS % (AUTO) 89 % (42-75); PLATELET COUNT 216 10^3/uL (130-400); WHITE BLOOD COUNT 14.3 10^3/uL (4.3-11.0)
[2023-10-29 05:35] LABS: ALBUMIN 3.3 GM/DL (3.2-4.5); BILIRUBIN,TOTAL 0.3 MG/DL (0.1-1.0); CALCIUM 8.3 MG/DL (8.5-10.1); CREATININE SERUM 1.78 MG/DL (0.60-1.30); POTASSIUM 4.1 MMOL/L (3.6-5.0); TOTAL PROTEIN 6.3 GM/DL (6.4-8.2)
[2023-10-29] MEDS: inSUlin ASPART 1 UNIT/0.01 ML (PER UNIT) SC SCH ×4 (06:02→11:49)
[2023-10-29] MEDS: FUROSEMIDE INJECTION 40 MG/4 ML VIAL IVP SCH (06:02)
[2023-10-29 07:25] VITALS: BP 159/90
[2023-10-29] MEDS: inSUlin DETERMIR 1 UNIT/0.01 ML (CHARGE PER UNIT) SQ SCH (08:40)
[2023-10-29] MEDS: CLOPIDOGREL 75 MG TABLET PO SCH (08:40)
[2023-10-29] MEDS: dexAMETHasone INJ 4 MG/ML SDV IV SCH (08:40)
[2023-10-29] MEDS: cefTRIAXone IV/IM 1,000 MG in NS (IVPB) 50 ML 50 ML IV SCH (08:40)
[2023-10-29] MEDS: MONTELUKAST 10 MG TABLET PO SCH (08:41)
[2023-10-29] MEDS: AZITHROMYCIN 250 MG TABLET PO SCH (08:41)
[2023-10-29] MEDS: SENNOSIDES 8.6 MG TABLET PO SCH (08:41)
[2023-10-29] MEDS: carvediloL 12.5 MG TABLET PO SCH (08:41)
[2023-10-29] MEDS: DOCUSATE SODIUM 100 MG CAPSULE PO SCH (08:41)
--- NOTE | 2023-10-29 09:33 | Cardiology Progress Note ---
Subjective Date Seen by Provider: Oct 29, 2023 Time Seen by Provider: 08:50 Subjective/Events-last exam Patient is sitting up in bed, reports dyspnea is significantly improved. Denies any chest pain. Objective-Cardiology Exam Last Set of Vital Signs Vital Signs 10/27/23 10/29/23 10/29/23 13:00 11:20 13:00 Temp 37.1 Pulse 62 Resp 18 B/P (MAP) 145/66 (92) Pulse Ox 95 O2 Delivery Nasal Cannula O2 Flow Rate 2.00 FiO2 24 I&O Intake and Output 10/28/23 23:59 Intake Total 1940 ml Output Total 500 ml Balance 1440 ml Intake Oral 1940 ml Output Urine Total 500 ml # Voids 3 General: Alert, Oriented X3, Cooperative HEENT: Atraumatic, PERRLA Neck: Supple, No JVD, No Thyromegaly Lungs: Other (decreased breath sounds bibasillarly) Heart: Regular Rate, Normal S1, Normal S2, No Murmurs Abdomen: Normal Bowel Sounds, Soft, No Tenderness, No Hepatosplenomegaly, No Masses Extremities: No Clubbing, No Cyanosis, Normal Pulses, No Tenderness/Swelling, Other (Mild pedal edema) Skin: No Rashes, No Breakdown, No Significant Lesion Neuro: Normal Speech, Normal Tone, Sensation Intact Psych/Mental Status: Mental Status NL, Mood NL Results Lab Laboratory Tests 10/29/23 04:30 A/P-Cardiology Admission Diagnosis Dyspnea Elevated BNP CAD HTN Assessment/Plan Dyspnea, likely multifactorial, elevated BNP, CXR showing right sided infiltrate. Started on antibiotics, received IV Lasix. 2D echo done on October 27, 2023 with ejection fraction 30 to 35% with anterior wall akinesia, severe pulmonary hypertension Continue with diuretics in addition recommend adding steroids, empiric antibiotics. Congestive heart failure, acute on chronic left ventricular systolic dysfunction, probably ischemic with anterior wall akinesia, old anterior myocardial infarction. Continue to maximize medical therapy, continue on diuretics Monitor tolerance and response CAD, reports history of intervention approx 2-3 years ago. Primary surgical product sales consultant is Dr. Austin, but reports no recent visit or work up. Cardiac enzymes negative. Consider stress test as outpatient Hypertension, controlled, Continue to monitor Hyperlipidemia, maintained on atorvastatin 40 mg daily Continue to monitor lipids PVD,reports history of stenting to the LLE DM, management per medical services COPD, acute exacerbation, recommend starting steroids Tobaccoism, educated on smoking cessation Supervisory-Addendum Brief Supervisory Addendum Participated in pt care: history, MDM, physical Personally performed: exam, history, MDM Care discussed with: SKY Results interpretation: Verified all documentation Notes: Patient was seen and evaluated with Lu, examination performed, management plan was discussed, agree with the current scribed note, I made few changes to the note using Italic font Patient was seen at bedside, sitting comfortably, feeling better, asking about going home We discussed the management plan recommended evaluating stress test as an outpatient, patient is hesitant to have a stress test Discussed monitoring his blood pressure, Patient will follow with his primary surgical product sales consultant LU MART PA-C Oct 29, 2023 09:33 JACEY LARSEN MD Oct 29, 2023 15:21
[2023-10-29] MEDS: FLUTICASONE/VILANTEROL 200/25 MCG (14 DOSES) IH SCH (10:08)
[2023-10-29 11:20] VITALS: BP 145/66
[2023-10-29] MEDS: ENOXAPARIN 40 MG/0.4 ML SYRINGE SC SCH (11:49)
[2023-10-29] MEDS ORDERED: MONT-40 PO (14:13)
[2023-10-29] MEDS ORDERED: AZIT250T12 PO (14:13)
[2023-10-29] MEDS ORDERED: IPRA3AMP31 INH (14:13)
[2023-10-29] MEDS ORDERED: CEFD300C3 PO (14:13)
[2023-10-29] MEDS ORDERED: PRED10TA22 PO (14:13)
--- NOTE | 2023-10-29 14:21 | Discharge Summary ---
Discharge Summary Hospital Course Was the Problem List Reviewed?: Yes Problems/Dx: (1) Chronic obstructive pulmonary disease, unspecified Qualifiers: Qualified Codes: J44.9 - Chronic obstructive pulmonary disease, unspecified (2) Pulmonary edema Qualifiers: Qualified Codes: J81.0 - Acute pulmonary edema (3) Dyspnea Qualifiers: Qualified Codes: R06.00 - Dyspnea, unspecified Hospital Course Date of Admission: Oct 28, 2023 at 11:10 Admission Diagnosis : Family Physician/Provider: Medina Andrade Aprn Date of Discharge: 10/29/23 Discharge Diagnosis: [ ] Hospital Course: Patient had an uneventful hospital course. He presented with respiratory failure COPD exacerbation managed with IV steroids. Antibiotics initiated for pneumonia. Volume overload requiring IV Lasix. Cardiology consulted. Overall he did very well but required oxygen at discharge. Severe heart disease and pulmonary hypertension and COPD precludes anything but a poor prognosis Labs and Pending Lab Test: Laboratory Tests 10/28/23 15:35: Glucometer 162H 10/28/23 20:07: Glucometer 350H 10/29/23 04:30: White Blood Count 14.3H, Red Blood Count 3.70L, Hemoglobin 11.1L, Hematocrit 34L , Mean Corpuscular Volume 92, Mean Corpuscular Hemoglobin 30, Mean Corpuscular Hemoglobin Concent 33, Red Cell Distribution Width 13.2, Platelet Count 216, Mean Platelet Volume 11.3, Immature Granulocyte % (Auto) 1, Neutrophils (%) (Auto) 89H, Lymphocytes (%) (Auto) 6L, Monocytes (%) (Auto) 4, Eosinophils (%) (Auto) 0, Basophils (%) (Auto) 0, Neutrophils # (Auto) 12.7H, Lymphocytes # (Auto) 0.9L, Monocytes # (Auto) 0.6, Eosinophils # (Auto) 0.0, Basophils # (Auto) 0.0, Immature Granulocyte # (Auto) 0.1, Sodium Level 141, Potassium Level 4.1, Chloride Level 104, Carbon Dioxide Level 25, Anion Gap 12, Blood Urea Nitrogen 47H, Creatinine 1.78H, Estimat Glomerular Filtration Rate 39, BUN/Creatinine Ratio 26, Glucose Level 266H, Calcium Level 8.3L, Corrected Calcium 8.9, Total Bilirubin 0.3, Aspartate Amino Transf (AST/SGOT) 16, Alanine Aminotransferase (ALT/SGPT) 14, Alkaline Phosphatase 102, Total Protein 6.3L, Albumin 3.3 10/29/23 10:38: Glucometer 170H Home Meds Active Cefdinir 300 Mg Capsule 300 Mg PO BID Prednisone 10 Mg Tab.ds.pk 10 Mg PO DAILY Take 6 tabs(60mg)daily,decrease by 1 tab(10mg)every other day. Montelukast Sodium 10 Mg Tablet 10 Mg PO DAILY@0900 Iprat-Albut 0.5-3(2.5) mg/3 ml (Ipratropium/Albuterol Sulfate) 0.5 Mg-3 Mg (2.5 Mg Base)/3 Ml Ampul.neb 3 Ml INH RTQ4HR Azithromycin 250 Mg Tablet 250 Mg PO DAILY Reported Aspirin EC (Aspirin) 81 Mg Tablet.dr 81 Mg PO HS Levemir Flexpen (Insulin Detemir) 100 Unit/Ml (3 Ml) Insuln.pen 30 Units SC DAILY Novolog Flexpen (Insulin Aspart) 100 Unit/Ml (3 Ml) Solution 12 Units SC AC Atorvastatin Calcium 40 Mg Tablet 40 Mg PO HS Lisinopril 5 Mg Tablet 5 Mg PO DAILY Carvedilol 25 Mg Tablet 25 Mg PO BID Clopidogrel (Clopidogrel Bisulfate) 75 Mg Tablet 75 Mg PO DAILY Furosemide 40 Mg Tablet 40 Mg PO BID Assessment/Pt Instructions PCP in 1 week Discharge Planning: <30 minutes discharge planning Discharge Instructions Discharge Diet: No Restrictions Activity as Tolerated: Yes Discharge Physical Examination Vital Signs Vital Signs Date Time Temp Pulse Resp B/P (MAP) Pulse Ox O2 Delivery O2 Flow Rate FiO2 10/29/23 11:20 37.1 79 18 145/66 (92) 95 Nasal Cannula 2.00 10/27/23 13:00 24 General Appearance: No Apparent Distress, WD/WN Respiratory: Lungs Clear, Normal Breath Sounds, Decreased Breath Sounds Allergies: Coded Allergies: No Known Drug Allergies (Unverified , 04/21/14) Discharge Summary Date of Admission Oct 28, 2023 at 11:10 Date of Discharge Discharge Date: Oct 29, 2023 Admission Diagnosis Assessment: Acute on chronic respiratory failure Exacerbation COPD with wheezing placed on Decadron Acute exacerbation of CHF given Lasix and cardiology consulted and echocardiogram Smoker Hypertension Diabetes insulin-dependent CAD on Plavix Plan: IV steroids IV Lasix Endo Cardiology consult IV antibiotics Discharge Diagnosis Moved down to fourth floor SAMINA SMITH DO Oct 29, 2023 14:21
[2023-10-29 15:30] VITALS: BP 145/66
== END 2023-10-29 15:45 | disposition home or self-care (01) | DRG 193 ==
LOC: EDUNIT# 07:58 → ER 07:59 → ICU 11:28 → OBSVTOIN 10-28 11:10 → 4TH 10-28 14:42
PROVIDERS: ADMIT Internal Medicine; ATTEND Internal Medicine
PROC: 5A09357 Assistance with Respiratory Ventilation, Less than 24 Consecutive Hours, Continuous Positive Airway Pressure (ICD-10-PCS; principal; 2023-10-27)
DX: J18.9 Pneumonia, unspecified organism (principal); J96.21 Acute and chronic respiratory failure with hypoxia; J44.1 Chronic obstructive pulmonary disease with (acute) exacerbation; J44.0 Chronic obstructive pulmonary disease with (acute) lower respiratory infection; I11.0 Hypertensive heart disease with heart failure; F17.210 Nicotine dependence, cigarettes, uncomplicated; I25.10 Atherosclerotic heart disease of native coronary artery without angina pectoris; I27.20 Pulmonary hypertension, unspecified; I50.9 Heart failure, unspecified; Z79.4 Long term (current) use of insulin; Z79.899 Other long term (current) drug therapy; Z79.84 Long term (current) use of oral hypoglycemic drugs; E78.00 Pure hypercholesterolemia, unspecified; Z86.711 Personal history of pulmonary embolism; K21.9 Gastro-esophageal reflux disease without esophagitis; E11.51 Type 2 diabetes mellitus with diabetic peripheral angiopathy without gangrene; I25.2 Old myocardial infarction
CPT/HCPCS: 36415; 71045; 71046; 80053; 80061; 82947; 83880; 84484; 85007; 85025; 85027; 93005; 93306; 94640; 94660; 94761; 96365; 96367; 96375